=== PATIENT | female | born 1990 | race Caucasian/White ===

== ENCOUNTER 2018-10-13 03:55 | Inpatient (IN) ==
[2018-10-13 03:53] LABS: Basophils # 0.1 K/mcL (0.0-0.2); Basophils % 0.4 %; Eosinophils # 0.2 K/mcL (0.0-0.6); Hematocrit 36.2 % (35.3-44.9); Immature Granulocytes % 0.6 % (0-4); Lymphocytes # 1.9 K/mcL (0.6-4.6); Lymphocytes % 11.3 %; Mean Corpuscular HGB Conc 33.1 g/dL (31.6-35.5); Mean Corpuscular Hemoglobin 28.8 pg (28.0-33.3); Mean Platelet Volume 10.5 fL (9.4-12.4); Monocytes # 1.1 K/mcL (0.0-1.3); Monocytes % 6.7 %; Neutrophils # 13.3 K/mcL (1.6-8.9); Platelet Count 311 K/mcL (140-400); Red Blood Count 4.16 M/mcL (3.82-4.97); Red Cell Distribution Width 13.2 % (11.5-14.5); White Blood Count 16.6 K/mcL (4.3-11.1)
[~2018-10-13 03:55] MED LIST: Famotidine 20 MG/2 ML VIAL IVP PRN; Metoclopramide 10 MG/2 ML VIAL IVP PRN; Naloxone 0.4 MG/ML INJ IVP PRN; Ondansetron 4 MG/2 ML VIAL IVP PRN
[2018-10-13 04:03] LABS: Amphetamine Screen,Urine Negative ng/mL (Cutoff=1000); Barbiturate Screen,Urine Negative ng/mL (Cutoff=200); Benzodiazepines Screen,Urine Negative ng/mL (Cutoff=200); Cannabinoid Screen,Urine Negative ng/mL (Cutoff = 50); Cocaine Screen,Urine Negative ng/mL (Cutoff= 300); Opiate Screen,Urine Negative ng/mL (Cutoff=300); Phencyclidine Screen,Urine Negative ng/mL (Cutoff=25)
[2018-10-13] MEDS ORDERED: Methylergonovine 0.2 MG/ML AMPUL IM ONE ×2 (09:02→22:23)
[2018-10-13] MEDS ORDERED: *HR* Nalbuphine 10 MG/ML AMPUL IV PRN (09:16)
[2018-10-13] MEDS ORDERED: Ringers Solution, Lactated 2,000 ML ONE (12:05)
[2018-10-13] MEDS ORDERED: *HR* FentaNYL (PF) 100 MCG/2 ML VIAL EP ONE (12:08)
[2018-10-13] MEDS ORDERED: Ropivacaine/PF 0.2% 20 ML VIAL EP ONE (12:08)
[2018-10-13] MEDS ORDERED: *HR* FentaNYL (PF) 100 MCG/2 ML VIAL ONE (12:09)
[2018-10-13] MEDS: Epidural Premix (fent/bupiv) 110 ML EP SCH ×2 (12:49→19:10)
[2018-10-13] MEDS ORDERED: Oxytocin 20 units/ LR 1000 mL 20 UNIT/1,000 ML BAG IVC SCH (16:30)
[2018-10-14] MEDS ORDERED: Oxytocin 20 units/ LR 1000 mL 20 UNIT/1,000 ML BAG IVC SCH (00:01)
[2018-10-14] MEDS ORDERED: Rho Immune Globulin 1,500 UNIT SYRINGE IM PRN (00:01)
[2018-10-14] MEDS ORDERED: Acetaminophen 325 MG TABLET PO SCH (00:01)
[2018-10-14] MEDS ORDERED: Lanolin 7 G OINT...G. TP PRN (00:01)
[2018-10-14] MEDS: Benzocaine/Menthol 56 GM AEROSOL SPRAY TP PRN ×2 (00:26→12:56)
[2018-10-14] MEDS: Ibuprofen 600 MG TABLET PO SCH ×3 (00:58→22:55)
[2018-10-14 06:01] LABS: Basophils % 0.2 %; Eosinophils # 0.1 K/mcL (0.0-0.6); Eosinophils % 0.3 %; Hematocrit 29.8 % (35.3-44.9); Immature Granulocytes % 0.8 % (0-4); Lymphocytes # 1.8 K/mcL (0.6-4.6); Lymphocytes % 8.4 %; Mean Corpuscular HGB Conc 33.2 g/dL (31.6-35.5); Mean Corpuscular Hemoglobin 29.2 pg (28.0-33.3); Mean Corpuscular Volume 87.9 fL (83.0-100.0); Mean Platelet Volume 10.8 fL (9.4-12.4); Monocytes # 2.3 K/mcL (0.0-1.3); Monocytes % 10.3 %; Neutrophils # 17.5 K/mcL (1.6-8.9); Platelet Count 301 K/mcL (140-400); Red Blood Count 3.39 M/mcL (3.82-4.97); Red Cell Distribution Width 13.5 % (11.5-14.5); White Blood Count 21.9 K/mcL (4.3-11.1)
[2018-10-14 06:05] LABS: Hemoglobin 9.9 g/dL (11.5-15.4)
[2018-10-14] MEDS: Prenatal Vit/FA 1 EACH TABLET PO SCH (07:37)
[2018-10-15 07:57] VITALS: BP 103/73
[2018-10-15] MEDS: Ibuprofen 600 MG TABLET PO SCH (10:43)
[2018-10-15] MEDS: Prenatal Vit/FA 1 EACH TABLET PO SCH (10:43)
== END 2018-10-15 13:45 | disposition home or self-care (01) | DRG 807 ==
LOC: 1NENULAB → 1NENUOBS 10-14
PROVIDERS: ADMIT Advanced Practice Midwife; ATTEND Advanced Practice Midwife

== ENCOUNTER 2021-01-17 04:57 | Inpatient (IN) ==
[2021-01-17] MEDS ORDERED: Azithromycin 500 MG in 0.9 % Sodium Chloride 250 ML IVPB PRN (05:21)
[2021-01-17] MEDS ORDERED: Lidocaine 1% 20 ML MDV INFILT PRN (05:21)
[2021-01-17] MEDS ORDERED: *HR* Nalbuphine 10 MG/ML AMPUL IV PRN (05:21)
[2021-01-17] MEDS ORDERED: Famotidine 20 MG/2 ML VIAL IVP PRN (05:21)
[2021-01-17] MEDS ORDERED: Ondansetron 4 MG/2 ML VIAL IVP PRN (05:21)
[2021-01-17] MEDS ORDERED: Metoclopramide 10 MG/2 ML VIAL IVP PRN (05:21)
[2021-01-17] MEDS ORDERED: Naloxone 0.4 MG/ML INJ IVP PRN (05:21)
[2021-01-17] MEDS ORDERED: Ringers Solution, Lactated 1,000 ML IVC SCH (05:30)
[2021-01-17 06:02] LABS: Basophils # 0.1 K/mcL (0.0-0.2); Basophils % 0.4 %; Eosinophils # 0.1 K/mcL (0.0-0.6); Eosinophils % 0.8 %; Hematocrit 34.5 % (35.3-44.9); Hemoglobin 11.7 g/dL (11.5-15.4); Immature Granulocytes % 0.5 % (0-4); Lymphocytes # 2.5 K/mcL (0.6-4.6); Lymphocytes % 15.4 %; Mean Corpuscular HGB Conc 33.9 g/dL (31.6-35.5); Mean Corpuscular Hemoglobin 29.8 pg (28.0-33.3); Mean Corpuscular Volume 87.8 fL (83.0-100.0); Monocytes % 6.3 %; Neutrophils # 12.6 K/mcL (1.6-8.9); Platelet Count 349 K/mcL (140-400); Red Blood Count 3.93 M/mcL (3.82-4.97); Red Cell Distribution Width 12.6 % (11.5-14.5); Segmented Neutrophils % 76.6 %; White Blood Count 16.5 K/mcL (4.3-11.1)
[2021-01-17 06:32] LABS: Influenza A PCR Negative (Negative); Influenza B PCR Negative (Negative); Resp. Syncytial Virus PCR Positive (Negative)
[2021-01-17 06:34] LABS: SARS-CoV-2 by PCR (In House) Negative (Negative)
[2021-01-17] MEDS ORDERED: EPHEDrine 50 MG/ML VIAL IVP PRN (06:49)
[2021-01-17] MEDS ORDERED: Epidural Premix (fent/bupiv) 110 ML EP SCH (07:00)
[2021-01-17] MEDS ORDERED: Oxytocin 20 units/ LR 1000 mL 20 UNIT/1,000 ML BAG IVC ONE ×2 (07:09→11:22)
[2021-01-17 09:42] LABS: Amphetamine Screen,Urine Negative ng/mL (Cutoff=1000); Barbiturate Screen,Urine Negative ng/mL (Cutoff=200); Benzodiazepines Screen,Urine Negative ng/mL (Cutoff=200); Cannabinoid Screen,Urine Negative ng/mL (Cutoff = 50); Cocaine Screen,Urine Negative ng/mL (Cutoff= 300); Opiate Screen,Urine Negative ng/mL (Cutoff=300); Phencyclidine Screen,Urine Negative ng/mL (Cutoff=25)
[2021-01-17 10:15] LABS: Rubella IgG Antibody POSITIVE (POSITIVE); Varicella Zoster IgG Antibody Positive
[2021-01-17] MEDS ORDERED: Benzocaine/Menthol 56 GM AEROSOL SPRAY TP PRN (11:33)
[2021-01-17] MEDS ORDERED: Ondansetron ODT 4 MG TAB.RAPDIS SL PRN (11:33)
[2021-01-17] MEDS ORDERED: Lanolin 7 G OINT...G. TP PRN (11:33)
[2021-01-17] MEDS ORDERED: Oxytocin 20 units/ LR 1000 mL 20 UNIT/1,000 ML BAG IVC SCH (11:33)
[2021-01-17] MEDS: Acetaminophen 325 MG TABLET PO SCH ×2 (11:41→21:03)
[2021-01-17] MEDS ORDERED: Methylergonovine 0.2 MG/ML AMPUL IM ONE (11:44)
[2021-01-17 12:33] LABS: Hepatitis B Surface Antigen Nonreactive (Nonreactive)
[2021-01-17 13:02] LABS: HIV-1&2 Antibody & p24 Ag Nonreactive (Nonreactive)
[2021-01-17] MEDS: Ibuprofen 600 MG TABLET PO SCH ×2 (14:23→21:03)
[2021-01-18] MEDS: Acetaminophen 325 MG TABLET PO SCH ×2 (04:07→10:01)
[2021-01-18] MEDS: Ibuprofen 600 MG TABLET PO SCH ×2 (04:08→10:01)
[2021-01-18 08:39] VITALS: BP 115/78; PULSE 83; TEMP 98.8; O2SAT 97
[2021-01-18] MEDS ORDERED: Prenatal Vit/FA 1 EACH TABLET PO SCH (09:00)
== END 2021-01-18 11:45 | disposition home or self-care (01) | DRG 807 ==
LOC: 1NENULAB → OBSVTOIN 04:57 → 1NENUOBS 11:33
PROVIDERS: ADMIT Advanced Practice Midwife; ATTEND Advanced Practice Midwife